=== PATIENT | female | born 1955 | race Caucasian/White ===

== ENCOUNTER → 2023-08-09 | Outpatient (CLI) | payer OTHER ==
--- NOTE | 2023-08-09 17:06 | Diagnostic Imaging Report ---
INDICATION: Right hip pain. COMPARISON: None available. TECHNIQUE: 2 radiographs of the right hip dated 08/09/2023. FINDINGS: No acute fracture or dislocation. No destructive osseous process. Minimal joint space narrowing of the right hip. Right femoral head maintains normal shape and contour. Mild degenerative changes in the pubic symphysis. No suspicious radiopaque foreign body. IMPRESSION: No acute osseous abnormality with low-grade degenerative changes present. Dictated by: Dictated on workstation # [id number]
--- NOTE | 2023-08-09 17:35 | Diagnostic Imaging Report ---
INDICATION: Right knee pain AP and oblique and lateral views of the right knee are obtained. No fracture or acute bony abnormality seen. There is patellofemoral joint space narrowing with osteophyte formation. There is prominent medial and lateral joint space narrowing. There is a question of loose body in the posterior joint space. IMPRESSION: Degenerative findings of the right knee as above with no overt acute abnormality. Dictated by: Dictated on workstation # [id number]
== END ==
LOC: ORTHO 13:12
PROVIDERS: ATTEND Orthopaedic Surgery
DX: M17.11 Unilateral primary osteoarthritis, right knee (principal); M25.551 Pain in right hip
CPT/HCPCS: 73502; 73564; G0463; 99203